=== PATIENT | female | born 1965 | race Caucasian/White ===

== ENCOUNTER → 2016-07-15 | Day surgery (SDC) | payer BC ==
--- NOTE | ~2016-07-15 | OR ---
Unit #: [id number] #: [id number] Patient: CAROL ALEXANDER [id number] [address] [address] [id number] MR#: [id number] NAME: CAROL ALEXANDER ROOM: Date of Procedure: 07/15/2016 Admission Date: 07/15/2016 Surgeon: London Tabares M.D. : 1965 Attending Physician: London Tabares M.D. Primary Care Physician: Mo Streeter M.D. OPERATIVE REPORT PRIMARY CARE PHYSICIAN Mo Streeter M.D. PREOPERATIVE DIAGNOSES The patient has presented with a history of gastroesophageal reflux, postprandial dyspepsia, and retrosternal ascending heartburn. In addition, she also has personal history of colon polyps and needs a surveillance colonoscopy. PROCEDURES PERFORMED Upper gastrointestinal endoscopy as well as colonoscopy up to cecum and terminal ileum with excellent preparation and good visualization. POSTOPERATIVE DIAGNOSES For upper endoscopy: Completely normal examination up to third part of duodenum. For colonoscopy: Completely normal examination up to cecum and terminal ileum. The quality of the prep was excellent. No polyps, diverticula, or hemorrhoids were seen. RECOMMENDATIONS 1. Repeat colonoscopy in 5 years. 2. The patient will be continued on pantoprazole 40 mg p.o. daily. She will be followed up in the office in 3 months' time. SEDATION USED MAC. DESCRIPTION OF PROCEDURE Following detailed explanation of potential risks and complications of an upper endoscopy, namely perforation, bleeding, and complications related to sedation, the patient was brought to GI lab and laid in the left lateral decubitus position. Lubricated tip of the Olympus video upper endoscope was passed through the bite block into the proximal esophagus under direct vision. The entire esophageal mucosa was examined and appeared normal. Z-line was nicely demarcated, there being no esophagitis or hiatus hernia. The scope was then advanced into the gastric cavity and the latter was insufflated. Mucosa of the fundus, body, and antrum was examined and appeared unremarkable. Pylorus was intubated with visualization of the normal duodenal bulb and second and third part of the duodenum. Upon withdrawal and retroflexion, incisura, cardia, and greater Unit #: [id number] #: [id number] Patient: LAROCCO DREAD,CAROL curve was examined and no additional findings were noted. The scope was then withdrawn in the distal esophagus. The entire esophageal mucosa was examined all the way up to pharynx. No additional findings noted. The examination table was then turned by 180 degrees and the patient was positioned for a colonoscopy. A digital rectal examination was performed, which was normal. Lubricated tip of the Olympus video colonoscope was inserted through the anus and advanced under direct vision. The scope was advanced past rectosigmoid into descending colon. No diverticula were seen in this area. The scope tip was then navigated all the way up to cecum with visualization of the ileocecal valve and the appendiceal orifice. Preparation was excellent with good visualization and photodocumentation was obtained. Last several inches of the terminal ileum were also visualized after intubation of the ileocecal valve and appeared normal. Successive segments of the colonic mucosa were examined upon withdrawal and appeared unremarkable. There being no polyps, mass lesions, AVMs, or diverticula. The patient did not have any hemorrhoids at anal verge. The scope was then withdrawn and the patient returned to the recovery area. She tolerated the procedure without any postprocedure complications. Dictated by... Dee Nur/bernabe TD: 07/15/2016 14:41 JOB #: [id number] CC: Mo Streeter M.D. OPERATIVE REPORT Page 1 of 1 X London Tabares MD PROCEDURE OPERATIVE NOTE
== END | disposition home or self-care (01) ==
LOC: COPS 11:52
DX: Z12.11 Encounter for screening for malignant neoplasm of colon (principal); K21.9 Gastro-esophageal reflux disease without esophagitis; I10 Essential (primary) hypertension; E11.9 Type 2 diabetes mellitus without complications; I42.9 Cardiomyopathy, unspecified; E78.5 Hyperlipidemia, unspecified; F17.210 Nicotine dependence, cigarettes, uncomplicated; M19.011 Primary osteoarthritis, right shoulder; M19.012 Primary osteoarthritis, left shoulder; Z79.84 Long term (current) use of oral hypoglycemic drugs; Z86.010 Personal history of colon polyps; Z79.1 Long term (current) use of non-steroidal anti-inflammatories (NSAID); Z79.82 Long term (current) use of aspirin; Z79.899 Other long term (current) drug therapy
CPT/HCPCS: 84703; J2250